=== PATIENT | male | born 1990 | race Caucasian/White ===

== ENCOUNTER 2022-04-02 20:37 | Emergency (ER) | payer OTHER ==
[~2022-04-02] VITALS: Ht 167.6 cm; Wt 62.0 kg
== END 2022-04-02 22:05 | disposition home or self-care (01) ==
LOC: ED 20:37
DX: J02.9 Acute pharyngitis, unspecified (principal)
CPT/HCPCS: 87880; 99283; A9270

== ENCOUNTER 2023-01-23 07:22 | Emergency (ER) | payer OTHER ==
[~2023-01-23] VITALS: Ht 167.6 cm; Wt 60.7 kg
--- OUTSIDE RECORDS SUMMARY | ~2023-01-23 | XMS | Continuity of Care Document ---
Demographics + + + | Address | [address] | | | [place] [address] | + + + | Preferred Language | Unknown | + + + | Marital Status | Never | + + + | Baptism Affiliation | Unknown | + + + | Race | White | + + + | Ethnic Group | Not or | + + + Author + + + | Author | [facility] | + + + | Organization | [facility] | + + + | Address | [address] | | | [place] [address] | + + + | Phone | | + + + Care Team Providers + + + + | Care Rewriter Name | Role | Phone | + + + + Unavailable | Unavailable | + + + + Unavailable | Unavailable | + + + + Allergies No information. Encounters No information. Functional Status No information. Immunizations No information. Medications No information. Problems + + + + | date | description | facility | + + + + | 2015-03-06 00:00 | Upper respiratory | [facility] | | | infection | | + + + + | 2022-04-02 00:00 | Viral pharyngitis | [facility] | + + + + Procedures No information. Results/Labs +--------+--------+ +---------+--------+---------+ | test | date | facility | value | unit | notes | +--------+--------+ +---------+--------+---------+ + + | Result panel 1 | + + + + + + + + + | | 2022-04-02 | [facility] | NEGATIVE | (missing) | (missing) | | (unavailable | 21:15 [facility] | | | | + + + + + + + Social History No information. Vital Signs + + + +---------+ | date | measurement | value | units | + + + +---------+ | 2022-04-02 00:00 | BMI | 22.1 | kg/m2 | + + + +---------+ | 2022-04-02 00:00 | BP_diastolic | 76 | mmHg | + + + +---------+ | 2022-04-02 00:00 | BP_systolic | 125 | mmHg | + + + +---------+ | 2022-04-02 00:00 | heart_rate | 66 | /min | + + + +---------+ | 2022-04-02 00:00 | height_metric | 167.64 | cm | + + + +---------+ | 2022-04-02 00:00 | height_standard | 66 | in | + + + +---------+ | 2022-04-02 00:00 | o2_saturation | 99 | % | + + + +---------+ | 2022-04-02 00:00 | respiration_rate | 18 | /min | + + + +---------+ | 2022-04-02 00:00 | temperature_metric | 37.5 | C | | | | | | + + + +---------+ | 2022-04-02 00:00 | | 99.5 | F | | | temperature_standar | | | | | d | | | + + + +---------+ | 2022-04-02 00:00 | weight_metric | 62 | kg | + + + +---------+ | 2022-04-02 00:00 | weight_standard | 136.69 | lb | + + + +---------+"
--- OUTSIDE RECORDS SUMMARY | ~2023-01-23 | XMS | Continuity of Care Document ---
Demographics + + + | Address | [address] | | | [place] [address] | + + + | Preferred Language | Unknown | + + + | Marital Status | Never | + + + | Anglican Affiliation | Unknown | + + + | Race | White | + + + | Ethnic Group | Not or | + + + Author + + + | Author | [facility] | + + + | Organization | [facility] | + + + | Address | [address] | | | [place] [address] | + + + | Phone | | + + + Care Team Providers + + + + | Care Eye Dropper Assembler Name | Role | Phone | + [...] | 2015-03-06 00:00 | Upper respiratory | [facility] | | | infection | | + + + + | 2022-04-02 00:00 | Viral pharyngitis | [facility] | + + + + Procedures No [...]
[2023-01-23] MEDS ORDERED: ONDANSETRON ODT8 MG PO (07:44)
[2023-01-23 10:53] VITALS: BP 133/94
== END 2023-01-23 10:55 | disposition home or self-care (01) ==
LOC: ED 07:22
DX: K52.9 Noninfective gastroenteritis and colitis, unspecified (principal)
CPT/HCPCS: 36415; 74177; 80053; 81001; 83690; 85025; 87088; 96361; 99284 25; J1170; J2405; J7030; Q9967